=== PATIENT | female | born 1950 ===

== ENCOUNTER 2020-08-01 20:39 | Emergency (ER) | payer MEDICARE, OTHER ==
[~2020-08-01] VITALS: Ht 157.5 cm; Wt 99.8 kg
[2020-08-01] MEDS ORDERED: ASPIRIN 81 MG CHEW TAB PO ONE (21:00)
[2020-08-01] MEDS ORDERED: CLONIDINE HCL 0.2 MG TAB PO ONE (21:15)
[2020-08-01] MEDS ORDERED: SODIUM CHLORIDE 0.9% 50ML 0 ML ONE (21:17)
[2020-08-01] MEDS ORDERED: IOPAMIDOL 370 MG/ML 200 ML INFUS..BTL INJ ONE (21:17)
[2020-08-01] MEDS ORDERED: CLONIDINE HCL 0.2 MG TAB ONE (21:26)
== END 2020-08-01 22:16 | disposition home or self-care (01) ==
LOC: ER 21:01
DX: I10 Essential (primary) hypertension (principal)
CPT/HCPCS: 71045; 99284; Q9967